=== PATIENT | male | born 1980 | race African-American/Black ===

== ENCOUNTER 2022-02-11 16:43 | Emergency (ER) | payer OTHER ==
[~2022-02-11 16:43] MED LIST: CIPRO500 MG PO
[2022-02-11 17:42] LABS: BASOPHIL 0.2 % (0-2); EOSINOPHIL 0.7 % (0-5); HCT 41.6 % (42.0-52.0); HGB 14.1 g/dl (13.2-18.0); LYMPHOCYTE 29.8 % (15-48); MCH 31.3 pg (25.0-31.0); MCHC 33.9 g/dL (32.0-36.0); MCV 92.4 fL (78.0-100.0); MONOCYTE 10.5 % (0-12); MPV 9.8 fL (6.0-9.5); NEUTROPHIL 58.1 % (41-80); NRBC 0; PLT 182 K/uL (150-400); RDW 12.6 % (11.5-14.0); WBC 4.5 K/uL (4.0-10.5)
[2022-02-11 18:04] LABS: ALBUMIN 3.8 g/dL (3.4-5.0); BILIRUBIN - TOTAL 0.5 mg/dL (0.2-1.0); CREATININE 1.2 mg/dL (0.67-1.17); GLOBULIN (CALCULATION) 4.6 g/dL; LACTIC ACID 2.2 mmol/L (0.4-1.9); POTASSIUM 3.4 mmol/L (3.5-5.1); TOTAL PROTEIN 8.4 g/dL (6.4-8.2)
[2022-02-11 19:41] LABS: BILIRUBIN NEGATIVE (NEGATIVE); BLOOD NEGATIVE Ery/uL (NEGATIVE); CLARITY CLEAR (CLEAR); COLOR YELLOW (YELLOW); GLUCOSE (U) NORMAL (NORMAL); LEUKOCYTES NEGATIVE Leu/uL (NEGATIVE); NITRITE NEGATIVE (NEGATIVE); PROTEIN NEGATIVE (NEGATIVE); SPECIFIC GRAVITY <=1.005 (1.001-1.030); UROBILINOGEN 0.2 mg/dL (0.2-1.0)
[2022-02-11 19:42] LABS: AMPHETAMINES NEGATIVE (NEGATIVE); BARBITURATES NEGATIVE (NEGATIVE); ECSTASY (MDMA) NEGATIVE (NEGATIVE); MARIJUANA (THC) NEGATIVE (NEGATIVE); METHADONE NEGATIVE (NEGATIVE); OPIATES NEGATIVE (NEGATIVE); OXYCODONE NEGATIVE (NEGATIVE)
== END 2022-02-11 20:25 | disposition home or self-care (01) ==
LOC: FER 16:43
PROVIDERS: Emergency Medicine
DX: R55 Syncope and collapse (principal); R56.9 Unspecified convulsions; I10 Essential (primary) hypertension; Z20.822 Contact with and (suspected) exposure to COVID-19; Z28.310 Unvaccinated for COVID-19; Z88.6 Allergy status to analgesic agent
CPT/HCPCS: 36415; 70450; 71045; 80053; 80305; 81003; 83605; 83735; 84484; 85025; 85379; 93005; G0480; J7030; U0002

== ENCOUNTER → 2022-04-27 | Day surgery (SDC) | payer OTHER ==
[~2022-04-27] VITALS: Ht 182.9 cm; Wt 128.0 kg
[~2022-04-27] MED LIST changes: +ALLOPURINOL 30300 MG PO; +AMLODIPINE BESY10 MG PO; +BACLOFEN10 MG PO; +DOXAZOSIN MESYLA8 M1 PO; +NEBIVOLOL HCL20 MG PO; +OMEPRAZOLE40 MG PO
== END | disposition home or self-care (01) ==
LOC: FAS 06:29
DX: D12.2 Benign neoplasm of ascending colon (principal); D12.3 Benign neoplasm of transverse colon; K64.8 Other hemorrhoids; K21.9 Gastro-esophageal reflux disease without esophagitis; I10 Essential (primary) hypertension; Z87.891 Personal history of nicotine dependence; Z88.8 Allergy status to other drugs, medicaments and biological substances; Z79.899 Other long term (current) drug therapy
CPT/HCPCS: J2250; J2704; J7120